=== PATIENT | female | born 1975 | race Caucasian/White ===

== ENCOUNTER 2018-11-20 19:24 | Emergency (ER) | payer OTHER, SELFPAY ==
[2018-11-20 21:10] LABS: Absolute Monocytes 0.4 K/uL (0.1-1.3); Absolute Neutrophil 4.2 K/uL (1.8-8.0); Basophils % 0.9 % (0-1.3); Eosinophils % 0.7 % (0-4.4); Hematocrit 43.8 % (36.0-45.0); Lymphocytes % 29.6 % (15.3-44.8); MPV 8.3 fL (7.6-11.3); RBC Red Blood Cell Count 4.87 M/uL (3.86-4.86)
[2018-11-20] MEDS ORDERED: MORPHINE 4 MG/ML SYR ONE (21:18)
[2018-11-20] MEDS ORDERED: ONDANSETRON 4 MG/2 ML VIAL ONE (21:18)
[2018-11-20] MEDS ORDERED: NA CHLORIDE 0.9% 1,000 ML ONE (21:19)
[2018-11-20 21:37] LABS: Albumin 3.6 g/dL (3.4-5.0); Bilirubin Direct 0.1 mg/dL (0-0.2); Bilirubin Total 0.4 mg/dL (0.2-1.0); Potassium 3.9 mmol/L (3.5-5.1); Protein, Total 7.3 g/dL (6.4-8.2)
[2018-11-20 22:09] LABS: Urine Blood TRACE (NEG); Urine Glucose NEGATIVE (NEG); Urine Protein TRACE (NEG); Urine Specific Gravity 1.025 (1.005-1.030); Urine pH 5.5 (5.0-7.0)
--- NOTE | 2018-11-20 23:34 | EDPHYS ---
Physician Documentation [facility] Name: Bobby Che Age: 43 yrs Sex: Female : 1975 Arrival Date: 11/20/2018 Time: 19:25 Bed 26 Private MD: ED Physician Darwin Gardner HPI: 11/20 23:12 This 43 yrs old Female presents to ER via Ambulatory with complaints of pm1 Abdominal Pain, Nausea. 23:12 The patient presents with abdominal pain in the left upper quadrant. Onset: The pm1 symptoms/episode began/occurred yesterday. The symptoms do not radiate. Associated signs and symptoms: Pertinent positives: nausea, Pertinent negatives: constipation, diarrhea, dysuria, fever, vomiting, vomiting blood. The symptoms are described as achy. Modifying factors: The symptoms are alleviated by nothing, the symptoms are aggravated by food. Severity of pain: in the emergency department the pain is actually worse. The patient has not experienced similar symptoms in the past. The patient has not recently seen a physician. 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 - Social history:: Smoking status: Patient/guardian denies using tobacco. - Ebola Screening: : No symptoms or risks identified at this time. ROS: 23:15 Constitutional: Negative for fever, chills, and weight loss, Eyes: Negative for injury, pm1 pain, redness, and discharge, ENT: Negative for injury, pain, and discharge, Neck: Negative for injury, pain, and swelling, Cardiovascular: Negative for chest pain, palpitations, and edema, Respiratory: Negative for shortness of breath, cough, wheezing, and pleuritic chest pain. 23:15 Back: Negative for injury and pain, : Negative for injury, bleeding, discharge, and swelling, MS/Extremity: Negative for injury and deformity, Skin: Negative for injury, rash, and discoloration, Neuro: Negative for headache, weakness, numbness, tingling, and seizure. 23:15 Abdomen/GI: Positive for abdominal pain, nausea, Negative for vomiting, diarrhea, constipation. Exam: 23:15 Constitutional: This is a well developed, well nourished patient who is awake, alert, pm1 and in no acute distress. Head/Face: Normocephalic, atraumatic. Eyes: Pupils equal round and reactive to light, extra-ocular motions intact. Lids and lashes normal. Conjunctiva and sclera are non-icteric and not injected. Cornea within normal limits. Periorbital areas with no swelling, redness, or edema. ENT: Nares patent. No nasal discharge, no septal abnormalities noted. Tympanic membranes are normal and external auditory canals are clear. Oropharynx with no redness, swelling, or masses, exudates, or evidence of obstruction, uvula midline. Mucous membranes moist. Neck: Trachea midline, no thyromegaly or masses palpated, and no cervical lymphadenopathy. Supple, full range of motion without nuchal rigidity, or vertebral point tenderness. No Meningismus. Chest/axilla: Normal chest wall appearance and motion. Nontender with no deformity. No lesions are appreciated. Cardiovascular: Regular rate and rhythm with a normal S1 and S2. No gallops, murmurs, or rubs. Normal PMI, no JVD. No pulse deficits. Respiratory: Lungs have equal breath sounds bilaterally, clear to auscultation and percussion. No rales, rhonchi or wheezes noted. No increased work of breathing, no retractions or nasal flaring. 23:15 Back: No spinal tenderness. No costovertebral tenderness. Full range of motion. Skin: Warm, dry with normal turgor. Normal color with no rashes, no lesions, and no evidence of cellulitis. MS/ Extremity: Pulses equal, no cyanosis. Neurovascular intact. Full, normal range of motion. 23:15 Abdomen/GI: Inspection: abdomen appears normal, Bowel sounds: normal, Palpation: soft, mild abdominal tenderness, in the left upper quadrant, mass, is not appreciated, rebound tenderness, is not appreciated. 23:15 Neuro: Orientation: is normal, Motor: is normal, moves all fours, strength is normal, strength is 5/5 in all extremities. Vital Signs: 19:41 BP 122 / 85; Pulse 69; Resp 18; Temp 98.7(O); Pulse Ox 99% on R/A; Weight 72.57 kg; lp1 Height 5 ft. 6 in. (167.64 cm); Pain 5/10; 20:45 BP 107 / 83; Pulse 62; Resp 17 S; Pulse Ox 98% on R/A; ca1 21:54 BP 100 / 70; Pulse 59; Resp 17 S; Pulse Ox 98% on R/A; ca1 22:30 BP 114 / 78; Pulse 57; Resp 18 S; Pulse Ox 99% on R/A; ca1 23:09 BP 109 / 79; Pulse 61; Resp 18 S; Pulse Ox 100% on R/A; ca1 19:41 Body Mass Index 25.82 (72.57 kg, 167.64 cm) lp1 MDM: 20:46 Patient medically screened. pm1 23:31 Data reviewed: vital signs. Data interpreted: Pulse oximetry: on room air is 100 %. pm1 Interpretation: normal. Counseling: I had a detailed discussion with the patient and/or guardian regarding: the historical points, exam findings, and any diagnostic results supporting the discharge/admit diagnosis, lab results, radiology results, the need for outpatient follow up, to return to the emergency department if symptoms worsen or persist or if there are any questions or concerns that arise at home. 11/20 20:47 Order name: Basic Metabolic Panel; Complete Time: 22:23 pm1 11/20 20:47 Order name: CBC with Diff; Complete Time: 22:23 pm11/20 20:47 Order name: Creatinine for Radiology; Complete Time: 22:23 pm11/20 20:47 Order name: Hepatic Function; Complete Time: 22:23 pm11/20 20:47 Order name: Lipase; Complete Time: 22:23 pm11/20 21:46 Order name: Urine Dipstick--Ancillary (enter results); Complete Time: 22:23 ms 11/20 20:47 Order name: IV Saline Lock; Complete Time: 21:34 pm1 11/20 20:47 Order name: Labs collected and sent; Complete Time: 21:34 pm11/20 20:52 Order name: CT Abd/Pelvis - W/Contrast: IV contrast only pm11/20 21:46 Order name: Urine --Ancillary (enter results); Complete Time: 22:23 ms 11/20 20:47 Order name: Urine Dipstick-Ancillary (obtain specimen); Complete Time: 21:55 pm1 11/20 20:47 Order name: Urine Test (obtain specimen); Complete Time: 21:55 pm1 Administered Medications: 21:15 Drug: NS 0.9% 1000 ml Route: IV; Rate: 1000 ml; Site: right forearm; rv 23:31 Follow up: IV Status: Completed infusion ca1 21:15 Drug: morphine 4 mg Route: IVP; Site: right forearm; rv 23:32 Follow up: Response: No adverse reaction; Pain is decreased ca1 21:15 Drug: Zofran 4 mg Route: IVP; Site: right forearm; rv 23:32 Follow up: Response: No adverse reaction; Nausea is decreased ca1 23:38 Drug: Bentyl 10 mg Route: PO; ca1 23:38 Follow up: Response: Medication administered at discharge. ca1 Disposition: 11/21 03:06 Co-signature as Attending Physician, Darwin Gardner MD. [email or web address] Disposition: 11/20/18 23:33 Discharged to Home. Impression: Constipation, Unspecified ovarian cysts. - Condition is Stable. - Discharge Instructions: Constipation, Adult, Ovarian Cyst, [id number]. - Prescriptions for Bentyl 20 mg Oral Tablet - take 1 tablet by ORAL route every 6 hours As needed; 20 tablet. Zofran 4 mg Oral Tablet - take 1 tablet by ORAL route every 12 hours As needed; 20 tablet. Miralax 17 gram/dose Oral - take 1 packet by ORAL route once daily As needed dilute powder in 8 ounces of water or juice; 7 packet. - Medication Reconciliation Form, Thank You Letter, Antibiotic Education, Prescription Opioid Use, Work release form form. - Follow up: Emergency Department; When: As needed; Reason: Worsening of condition. Follow up: Private Physician; When: 2 - 3 days; Reason: Recheck today's complaints, Continuance of care, Re-evaluation by your physician. - Problem is new. - Symptoms have improved. Signatures: Dispatcher [employer] EDMS Darwin Gardner MD MD pkl Gavi Magallanes RN RN lp1 Ariel Jones, KNIFE CHANGER KNIFE CHANGER pm1 Ronal Diamond RN RN rv Jazzy Blackman RN RN ca1 Corrections: (The following items were deleted from the chart) 11/20 23:39 23:33 11/20/2018 23:33 Discharged to Home. Impression: Constipation; Unspecified ca1 ovarian cysts. Condition is Stable. Forms are Work release form, Medication Reconciliation Form, Thank You Letter, Antibiotic Education, Prescription Opioid Use. Follow up: Emergency Department; When: As needed; Reason: Worsening of condition. Follow up: Private Physician; When: 2 - 3 days; Reason: Recheck today's complaints, Continuance of care, Re-evaluation by your physician. Problem is new. Symptoms have improved. pm1
--- NOTE | 2018-11-20 23:34 | ER ---
Nurse's Notes [facility] Name: Bobby Che Age: 43 yrs Sex: Female : 1975 Arrival Date: 11/20/2018 Time: 19:25 Bed 26 Private MD: Diagnosis: Constipation;Unspecified ovarian cysts Presentation: 11/20 19:39 Presenting complaint: Patient states: L side abdominal pain that began yesterday, not lp1 improving; States nausea, pain when attempting to eat; Denies diarrhea, fever, burning with urination. Transition of care: patient was not received from another setting of care. Onset of symptoms was November 19, 2018. Risk Assessment: Do you want to hurt yourself or someone else? Patient reports no desire to harm self or others. Initial Sepsis Screen: Does the patient meet any 2 criteria? No. Patient's initial sepsis screen is negative. Does the patient have a suspected source of infection? No. Patient's initial sepsis screen is negative. Care prior to arrival: None. 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 - Social history:: Smoking status: Patient/guardian denies using tobacco. - Ebola Screening: : No symptoms or risks identified at this time. Screenin:41 Abuse screen: Denies threats or abuse. Denies injuries from another. Nutritional lp1 screening: No deficits noted. Tuberculosis screening: No symptoms or risk factors identified. Fall Risk None identified. Assessment: 20:40 General: Appears in no apparent distress. comfortable, Behavior is calm, cooperative, ca1 appropriate for age. Pain: Complains of pain in abdomen Pain does not radiate. Pain currently is 8 out of 10 on a pain scale. Neuro: Level of Consciousness is awake, alert, obeys commands, Oriented to person, place, time, situation. Cardiovascular: Heart tones S1 S2 present Capillary refill < 3 seconds Patient's skin is warm and dry. Respiratory: Airway is patent Respiratory effort is even, unlabored, Respiratory pattern is regular, symmetrical, Breath sounds are clear bilaterally. GI: Abdomen is round non-distended, Bowel sounds present X 4 quads. Abd is soft X 4 quads Abdomen is tender to palpation in right lower quadrant and left lower quadrant Reports nausea. : No deficits noted. No signs and/or symptoms were reported regarding the genitourinary system. EENT: No deficits noted. No signs and/or symptoms were reported regarding the EENT system. Derm: Skin is intact, is healthy with good turgor, Skin is pink, warm \T\ dry. Musculoskeletal: Circulation, motion, and sensation intact. Capillary refill < 3 seconds. 21:35 Reassessment: Patient appears in no apparent distress at this time. Patient and/or ca1 family updated on plan of care and expected duration. Pain level reassessed. Patient is alert, oriented x 3, equal unlabored respirations, skin warm/dry/pink. 22:40 Reassessment: Patient appears in no apparent distress at this time. Patient is alert, ca1 oriented x 3, equal unlabored respirations, skin warm/dry/pink. 23:20 Reassessment: Patient appears in no apparent distress at this time. Patient and/or ca1 family updated on plan of care and expected duration. Pain level reassessed. Patient is alert, oriented x 3, equal unlabored respirations, skin warm/dry/pink. Vital Signs: 19:41 BP 122 / 85; Pulse 69; Resp 18; Temp 98.7(O); Pulse Ox 99% on R/A; Weight 72.57 kg; lp1 Height 5 ft. 6 in. (167.64 cm); Pain 5/10; 20:45 BP 107 / 83; Pulse 62; Resp 17 S; Pulse Ox 98% on R/A; ca1 21:54 BP 100 / 70; Pulse 59; Resp 17 S; Pulse Ox 98% on R/A; ca1 22:30 BP 114 / 78; Pulse 57; Resp 18 S; Pulse Ox 99% on R/A; ca1 23:09 BP 109 / 79; Pulse 61; Resp 18 S; Pulse Ox 100% on R/A; ca1 19:41 Body Mass Index 25.82 (72.57 kg, 167.64 cm) lp1 ED Course: 19:25 Patient arrived in ED. ds1 19:40 Triage completed. lp1 19:41 Arm band placed on right wrist. lp1 20:36 Jazzy Blackman, MONY is Primary Nurse. ca1 20:37 Ariel Jones NP is PHCP. pm1 20:37 Darwin Gardner MD is Attending Physician. pm1 20:40 Patient has correct armband on for positive identification. Placed in gown. Bed in low ca1 position. Call light in reach. Side rails up X 1. Pulse ox on. NIBP on. Warm blanket given. 20:58 Radiology exam delayed due to lab results not completed at this time. (BUN/Creatinine). 2 21:08 Radiology exam delayed due to lab results not completed at this time. (BUN/Creatinine). nj 21:23 Radiology exam delayed due to lab results not completed at this time. (BUN/Creatinine). nj 21:[address] via wheelchair. nj 21:58 CT Abd/Pelvis - W/Contrast: IV contrast only In Process Unspecified. EDMS 23:38 No provider procedures requiring assistance completed. IV discontinued, intact, ca1 bleeding controlled, No redness/swelling at site. Pressure dressing applied. Administered Medications: 21:15 Drug: NS 0.9% 1000 ml Route: IV; Rate: 1000 ml; Site: right forearm; rv 23:31 Follow up: IV Status: Completed infusion ca1 21:15 Drug: morphine 4 mg Route: IVP; Site: right forearm; rv 23:32 Follow up: Response: No adverse reaction; Pain is decreased ca1 21:15 Drug: Zofran 4 mg Route: IVP; Site: right forearm; rv 23:32 Follow up: Response: No adverse reaction; Nausea is decreased ca1 23:38 Drug: Bentyl 10 mg Route: PO; ca1 23:38 Follow up: Response: Medication administered at discharge. ca1 Outcome: 23:33 Discharge ordered by . pm1 23:38 Discharged to home ambulatory, with significant other. ca1 23:38 Condition: stable 23:38 Discharge instructions given to patient, Instructed on discharge instructions, follow up and referral plans. medication usage, Demonstrated understanding of instructions, follow-up care, medications, Prescriptions given X 3. 23:39 Patient left the ED. ca1 Signatures: Dispatcher [employer] [facility] Adela Wharton ds1 Gavi Magallanes RN RN lp1 Ariel Jones, WELDER PLASTIC WELDER PLASTIC pm1 Gerard Childress Victoria 2 Ronal Diamond RN RN rv Jazzy Blackman RN RN ca1 Corrections: (The following items were deleted from the chart) 21:51 20:40 GI: Abdomen is round non-distended, Bowel sounds present X 4 quads. Abd is soft X ca1 4 quads Abdomen is tender to palpation in right lower quadrant and left lower quadrant ca1
[2018-11-20 23:45] VITALS: TEMP 98.7
[2018-11-20] MEDS ORDERED: DICYCLOMINE HCL 10 MG CAP ONE (23:47)
[2018-11-20 23:51] VITALS: BP 109/79; O2SAT 100
--- NOTE | 2018-11-21 11:29 | RAD REPORT ---
EXAM DESCRIPTION: CT - Abdomen Pelvis W Contrast - 11/20/2018 11:03 pm CLINICAL HISTORY: 43 years Female, ABD PAIN COMPARISON: None. TECHNIQUE: 5 mm arterial phase axial images of the abdomen were obtained. 5 mm venous phase axial images of the abdomen and pelvis were obtained along with 3 mm coronal and sa gittal reformatted images.. This exam was performed according to our departmental dose-optimization program, which includes autom ated exposure control, adjustment of the mA and/or kV according to patient size and/or use of iterati ve reconstruction technique. INTRAVENOUS CONTRAST: Not documented. Please refer to medical record. FINDINGS: Lung bases: Normal. Liver: Normal. Spleen: Normal. Pancreas: Normal. Gallbladder: Normal. Right adrenal gland: Normal. Left adrenal gland: Normal. Right kidney: Normal. Left kidney: Normal. Retroperitoneal structures: Normal. Bowel survey: There is increased stool within the ascending, transverse, descending colon. The distal ileum is unremarkable. The appendix is unremarkable. Urinary bladder: Normal. Uterus and adnexa: There is evidence of previous bilateral tubal ligation. There is a crenulated right ovarian cyst with a small amount of adjacent free fluid suggesting a cyst rupture.. The cyst measures 2.1 x 1.5 cm. Peritoneal cavity: Small amount of free fluid in the posterior pelvic cul-de-sac.. Mesentery structures: There is mild mesenteric panniculitis. Abdominal wall: No hernia. Bony structures: No suspicious lesions. IMPRESSION: 1. There is increased stool within the ascending, transverse, descending colon. 2. Ruptured right ovarian cyst. Electronically signed by: Nicolás Heredia MD 11/20/2018 10:10 PM CDT Due to temporary technical issues with the PACS/Fluency reporting system, reports are being signed by the in house radiologist as a courtesy to ensure prompt reporting. The interpreting radiologist is f ully responsible for the content of the report.
== END 2018-11-20 23:39 | disposition home or self-care (01) ==
LOC: ER 19:24
DX: K59.00 Constipation, unspecified (principal); N83.201 Unspecified ovarian cyst, right side; F41.9 Anxiety disorder, unspecified; F32.9 Major depressive disorder, single episode, unspecified; Z79.899 Other long term (current) drug therapy
CPT/HCPCS: 36415; 74177; 80048; 80076; 81003; 81025; 83690; 85025; 96361; 96374; 96375; 99284; J2405; J7030; Q9967

== ENCOUNTER 2018-12-22 06:33 | Emergency (ER) | payer SELFPAY ==
--- NOTE | 2018-12-22 07:24 | ER ---
Nurse's Notes [facility] Name: Bobby Che Age: 43 yrs Sex: Female : 1975 Arrival Date: 12/22/2018 Time: 06:34 Bed 19 Private MD: Diagnosis: Cutaneous abscess of head [any part, except face];Acute contact otitis externa, right ear Presentation: 12/22 07:03 Presenting complaint: Patient states: R ear pain for the past week, with a head cold. ch Transition of care: patient was not received from another setting of care. Onset of symptoms was December 15, 2018. Risk Assessment: Do you want to hurt yourself or someone else? Patient reports no desire to harm self or others. Initial Sepsis Screen: Does the patient meet any 2 criteria? No. Patient's initial sepsis screen is negative. Does the patient have a suspected source of infection? No. Patient's initial sepsis screen is negative. Care prior to arrival: None. 07:03 Method Of Arrival: Ambulatory 07:03 Acuity: HUMAIRA 4 ch Triage Assessment: 07:05 General: Appears in no apparent distress. uncomfortable, Behavior is calm, cooperative, ch appropriate for age. Pain: Complains of pain in right ear. EENT: Ear canal w/ drainage noted from right ear. Historical: - Allergies: 07:05 No Known Allergies; ch - PMHx: 07:05 Anxiety; Asthma; Depression; Endometrosis; Ovarian cysts; ch - PSHx: 07:05 Tubal ligation; ch - Immunization history:: Adult Immunizations up to date, Flu vaccine is not up to date. - Social history:: Smoking status: Patient/guardian denies using tobacco, Patient/guardian denies using alcohol, street drugs. - Ebola Screening: : Patient negative for fever greater than or equal to 101.5 degrees Fahrenheit, and additional compatible Ebola Virus Disease symptoms Patient denies exposure to infectious person Patient denies travel to an Ebola-affected area in the 21 days before illness onset No symptoms or risks identified at this time. Screenin:15 Abuse screen: Denies threats or abuse. Nutritional screening: No deficits noted. aa5 Tuberculosis screening: No symptoms or risk factors identified. Fall Risk None identified. Assessment: 07:15 General: Appears uncomfortable, Behavior is calm, cooperative. Pain: Complains of pain aa5 in right ear. Neuro: Level of Consciousness is awake, alert, obeys commands, Oriented to person, place, time, situation. Cardiovascular: Heart tones S1 S2 present Rhythm is regular. Respiratory: Airway is patent Respiratory effort is even, unlabored, Respiratory pattern is regular, symmetrical. GI: No signs and/or symptoms were reported involving the gastrointestinal system. : No signs and/or symptoms were reported regarding the genitourinary system. EENT: redness and swelling noted to right external ear. . Derm: Skin is pink, warm \T\ dry. Musculoskeletal: Range of motion: intact in all extremities. 07:17 Reassessment: Small abscess to right external ear lanced by KALEB, small amount of aa5 purulent drainage was noted. . Vital Signs: 07:05 BP 137 / 96; Pulse 90; Resp 14; Pulse Ox 99% on R/A; Pain 8/10; ch ED Course: 06:34 Patient arrived in ED. am2 06:55 Dorys Negron RN is Primary Nurse. 06:57 Waqas Stringer PA is PHCP. jr8 06:57 Arian Rouse MD is Attending Physician. jr8 07:04 Triage completed. 07:05 Arm band placed on left wrist. Patient placed in an exam room, on a stretcher, on pulse ch oximetry. 07:15 Patient has correct armband on for positive identification. Bed in low position. Call aa5 light in reach. Side rails up X 1. 07:30 Patient did not have IV access during this emergency room visit. aa5 07:30 No provider procedures requiring assistance completed. aa5 Administered Medications: No medications were administered Outcome: 07:23 Discharge ordered by . jr8 07:32 Discharged to home ambulatory. aa5 07:32 Condition: stable 07:32 Discharge instructions given to patient, Instructed on discharge instructions, follow up and referral plans. medication usage, Demonstrated understanding of instructions, follow-up care, medications, Prescriptions given X 2. 07:33 Patient left the ED. jr8 Signatures: Dorys Negron, RN RN Yuli Saavedra RN RN [facility] Waqas Stringer PA PA jr8 Trisha Flores am2
--- NOTE | 2018-12-22 07:24 | EDPHYS ---
Physician Documentation [facility] Name: Bobby Che Age: 43 yrs Sex: Female : 1975 Arrival Date: 12/22/2018 Time: 06:34 Bed 19 Private MD: ED Physician Arian Rouse HPI: 12/22 07:30 This 43 yrs old Female presents to ER via Ambulatory with complaints of Ear jr8 Pain. 07:30 The patient presents with pain. The complaints affect the right ear. Onset: The jr8 symptoms/episode began/occurred acutely, yesterday. Modifying factors: The symptoms are alleviated by nothing, the symptoms are aggravated by touching. Associated signs and symptoms: Pertinent positives: cough, rhinorrhea, sinus trouble. Severity of symptoms: At their worst the symptoms were mild in the emergency department the symptoms are unchanged. The patient has not experienced similar symptoms in the past. The patient has not recently seen a physician. Historical: - Allergies: 07:05 No Known Allergies; ch - PMHx: 07:05 Anxiety; Asthma; Depression; Endometrosis; Ovarian cysts; ch - PSHx: 07:05 Tubal ligation; ch - Immunization history:: Adult Immunizations up to date, Flu vaccine is not up to date. - Social history:: Smoking status: Patient/guardian denies using tobacco, Patient/guardian denies using alcohol, street drugs. - Ebola Screening: : Patient negative for fever greater than or equal to 101.5 degrees Fahrenheit, and additional compatible Ebola Virus Disease symptoms Patient denies exposure to infectious person Patient denies travel to an Ebola-affected area in the 21 days before illness onset No symptoms or risks identified at this time. ROS: 07:30 Eyes: Negative for injury, pain, redness, and discharge, Neck: Negative for injury, jr8 pain, and swelling, Cardiovascular: Negative for chest pain, palpitations, and edema, Abdomen/GI: Negative for abdominal pain, nausea, vomiting, diarrhea, and constipation, Back: Negative for injury and pain, MS/Extremity: Negative for injury and deformity, Skin: Negative for injury, rash, and discoloration, Neuro: Negative for headache, weakness, numbness, tingling, and seizure. 07:30 Constitutional: Negative for body aches, chills, fever. 07:30 ENT: Positive for ear pain, rhinorrhea, sinus congestion, Negative for drainage from ear(s), Gum pain tinnitus, sinus pain, sore throat, difficulty swallowing, difficulty handling secretions. 07:30 Respiratory: Positive for cough, Negative for dyspnea on exertion, shortness of breath, sputum production, wheezing. Exam: 07:30 Head/Face: Normocephalic, atraumatic. Eyes: Pupils equal round and reactive to light, jr8 extra-ocular motions intact. Lids and lashes normal. Conjunctiva and sclera are non-icteric and not injected. Cornea within normal limits. Periorbital areas with no swelling, redness, or edema. Neck: Trachea midline, no thyromegaly or masses palpated, and no cervical lymphadenopathy. Supple, full range of motion without nuchal rigidity, or vertebral point tenderness. No Meningismus. Cardiovascular: Regular rate and rhythm with a normal S1 and S2. No gallops, murmurs, or rubs. Normal PMI, no JVD. No pulse deficits. Respiratory: Lungs have equal breath sounds bilaterally, clear to auscultation and percussion. No rales, rhonchi or wheezes noted. No increased work of breathing, no retractions or nasal flaring. Abdomen/GI: Soft, non-tender, with normal bowel sounds. No distension or tympany. No guarding or rebound. No evidence of tenderness throughout. Back: No spinal tenderness. No costovertebral tenderness. Full range of motion. Skin: Warm, dry with normal turgor. Normal color with no rashes, no lesions, and no evidence of cellulitis. MS/ Extremity: Pulses equal, no cyanosis. Neurovascular intact. Full, normal range of motion. Neuro: Awake and alert, GCS 15, oriented to person, place, time, and situation. Cranial nerves II-XII grossly intact. Motor strength 5/5 in all extremities. Sensory grossly intact. Cerebellar exam normal. Normal gait. 07:30 ENT: Exam is negative for nasal discharge, sinus tenderness, enlarged tonsils, peritonsillar abscess pharyngitis, exudate, abnormal voice, External ear(s): abscess, that is very small, right ear canal, Ear canal(s): purulent discharge, that is moderate, in the right canal, swelling, that is moderate, of the right canal, TM's: are normal, no evidence of bulging, no dullness, no erythema, no fluid levels, no hemotympanum, no rupture, normal bony landmarks, normal mobility. Vital Signs: 07:05 BP 137 / 96; Pulse 90; Resp 14; Pulse Ox 99% on R/A; Pain 8/10; ch MDM: 06:57 Patient medically screened. jr8 07:23 Data reviewed: vital signs, nurses notes, and as a result, I will discharge patient. jr8 Data interpreted: Pulse oximetry: on room air is 99 %. Interpretation: normal. Counseling: I had a detailed discussion with the patient and/or guardian regarding: the historical points, exam findings, and any diagnostic results supporting the discharge/admit diagnosis, the need for outpatient follow up, a family practitioner, to return to the emergency department if symptoms worsen or persist or if there are any questions or concerns that arise at home. Administered Medications: No medications were administered Disposition: 11:46 Co-signature as Attending Physician, Arian Rouse MD I agree with the assessment and [facility] plan of care. Disposition: 12/22/18 07:23 Discharged to Home. Impression: Cutaneous abscess of head [any part, except face], Acute contact otitis externa, right ear. - Condition is Stable. - Discharge Instructions: Skin Abscess, Otitis Externa, Incision and Drainage. - Prescriptions for Keflex 500 mg Oral Capsule - take 1 capsule by ORAL route every 8 hours for 7 days; 21 capsule. Ciprodex 0.3- 0.1 % Otic Drops, Suspension - instill 4 drop by OTIC route every 12 hours for 7 days , for ears ONLY; 1 Container. - Work release form, Medication Reconciliation Form, Thank You Letter, Antibiotic Education, Prescription Opioid Use form. - Follow up: Private Physician; When: 5 - 6 days; Reason: Recheck today's complaints, Continuance of care, Re-evaluation by your physician. - Problem is new. - Symptoms have improved. Signatures: Dorys Negron RN RN ch Anderson, Corey, MD MD cha Roszak, Josh, PA PA jr8 Corrections: (The following items were deleted from the chart) 07:33 07:23 12/22/2018 07:23 Discharged to Home. Impression: Cutaneous abscess of head [any jr8 part, except face]; Acute contact otitis externa, right ear. Condition is Stable. Forms are Medication Reconciliation Form, Thank You Letter, Antibiotic Education, Prescription Opioid Use. Follow up: Private Physician; When: 5 - 6 days; Reason: Recheck today's complaints, Continuance of care, Re-evaluation by your physician. Problem is new. Symptoms have improved. jr8
[2018-12-22 07:40] VITALS: BP 137/96; O2SAT 99
== END 2018-12-22 07:33 | disposition home or self-care (01) ==
LOC: ER 06:33
DX: H60.531 Acute contact otitis externa, right ear (principal); L02.811 Cutaneous abscess of head [any part, except face]
CPT/HCPCS: 99283

== ENCOUNTER 2021-01-02 07:55 | Emergency (ER) | payer SELFPAY ==
[2021-01-02 08:50] LABS: Absolute Lymphocytes (CBC) 1.4 K/uL (0.7-4.9); Basophils % 0.9 % (0-1.3); Hematocrit 38.2 % (36.0-45.0); Lymphocytes % 32.1 % (15.3-44.8); MPV 8.6 fL (7.6-11.3); RBC Red Blood Cell Count 4.41 M/uL (3.86-4.86)
[2021-01-02 08:54] LABS: Protime INR 0.98
--- NOTE | 2021-01-02 08:57 | RAD REPORT ---
EXAM DESCRIPTION: RAD - Chest Single View - 01/02/2021 8:31 am CLINICAL HISTORY: CHEST PAIN Chest pain. COMPARISON: CHEST PA AND LAT 2 VIEW dated 04/28/2015; CHEST SINGLE VIEW dated 03/08/2015; CHEST PA AND LAT 2 VIEW dated 12/23/2014; CHEST SINGLE VIEW dated 08/24/2014 FINDINGS: Portable technique limits examination quality. The lungs are grossly clear. The heart is normal in size. No displaced fractures. IMPRESSION: No acute intrathoracic process suspected.
[2021-01-02 09:13] LABS: ALT/SGPT 27 U/L (12-78); AST/SGOT 13 U/L (15-37); Albumin 3.6 g/dL (3.4-5.0); Alkaline Phosphatase 82 U/L (45-117); BUN Blood Urea Nitrogen 13 mg/dL (7-18); Bicarbonate 26 mmol/L (21-32); Bilirubin Direct < 0.1 mg/dL (0-0.2); Bilirubin Total 0.2 mg/dL (0.2-1.0); Glucose Level 117 mg/dL (74-106); Magnesium 2.2 mg/dL (1.8-2.4); NT PRO-BNP 33 pg/mL (<125); Protein, Total 6.9 g/dL (6.4-8.2); Sodium Level 139 mmol/L (136-145); Troponin (Emerg Dept Use Only) < 0.02 ng/mL (0.0-0.045)
--- NOTE | 2021-01-02 10:44 | EDPHYS ---
Physician Documentation [facility] Name: Bobby Che Age: 45 yrs Sex: Female : 1975 Arrival Date: 01/02/2021 Time: 07:56 Bed 13 Private MD: ED Physician Virgilio Garcia HPI: 01/02 08:45 This 45 yrs old Female presents to ER via Ambulatory with complaints of Chest kdr Pain. 08:45 The patient or guardian reports chest pain that is located primarily in the anterior kdr chest wall, left. Onset: gradually, 4 day(s) ago. The pain does not radiate. Associated signs and symptoms: The patient has no apparent associated signs or symptoms. The chest pain is described as aching, burning, dull, a pressure. Duration: The patient or guardian reports multiple episodes, that are intermittent, that wax and wane, with no pattern. Modifying factors: The symptoms are alleviated by nothing. the symptoms are aggravated by nothing. Severity of pain: At its worst the pain was. Historical: - Allergies: 08:03 No Known Drug Allergies; ll1 - PMHx: 08:03 Anxiety; Asthma; Depression; Endometrosis; Ovarian cysts; ll1 - PSHx: 08:03 Tubal ligation; ll1 - Immunization history:: Flu vaccine is not up to date. - Social history:: Smoking status: Patient denies any tobacco usage or history of. ROS: 12:53 Constitutional: Negative for fever, chills, and weight loss, Eyes: Negative for injury, kdr pain, redness, and discharge, ENT: Negative for injury, pain, and discharge, Neck: Negative for injury, pain, and swelling, Respiratory: Negative for shortness of breath, cough, wheezing, and pleuritic chest pain, Abdomen/GI: Negative for abdominal pain, nausea, vomiting, diarrhea, and constipation, Back: Negative for injury and pain, : Negative for injury, bleeding, discharge, and swelling, MS/Extremity: Negative for injury and deformity, Skin: Negative for injury, rash, and discoloration, Neuro: Negative for headache, weakness, numbness, tingling, and seizure activity. Psych: Negative for depression, anxiety, suicide ideation, homicidal ideation, and hallucinations, Allergy/Immunology: Negative for hives, rash, and allergies, Endocrine: Negative for neck swelling, polydipsia, polyuria, polyphagia, and marked weight changes, Hematologic/Lymphatic: Negative for swollen nodes, abnormal bleeding, and unusual bruising. 12:53 Cardiovascular: Positive for chest pain, Negative for edema, orthopnea, palpitations, paroxysmal nocturnal dyspnea. Exam: 12:53 ECG was reviewed by the Attending Physician. kdr 12:53 Constitutional: This is a well developed, well nourished patient who is awake, alert, kdr and in no acute distress. Head/Face: Normocephalic, atraumatic. Eyes: Pupils equal round and reactive to light, extra-ocular motions intact. Lids and lashes normal. Conjunctiva and sclera are non-icteric and not injected. Cornea within normal limits. Periorbital areas with no swelling, redness, or edema. Neck: Trachea midline, no thyromegaly or masses palpated, and no cervical lymphadenopathy. Supple, full range of motion without nuchal rigidity, or vertebral point tenderness. No Meningismus. Chest/axilla: Normal chest wall appearance and motion. Nontender with no deformity. No lesions are appreciated. Cardiovascular: Regular rate and rhythm with a normal S1 and S2. No gallops, murmurs, or rubs. Normal PMI, no JVD. No pulse deficits. Respiratory: Lungs have equal breath sounds bilaterally, clear to auscultation and percussion. No rales, rhonchi or wheezes noted. No increased work of breathing, no retractions or nasal flaring. Abdomen/GI: Soft, non-tender, with normal bowel sounds. No distension or tympany. No guarding or rebound. No evidence of tenderness throughout. Back: No spinal tenderness. No costovertebral tenderness. Full range of motion. Skin: Warm, dry with normal turgor. Normal color with no rashes, no lesions, and no evidence of cellulitis. MS/ Extremity: Pulses equal, no cyanosis. Neurovascular intact. Full, normal range of motion. Neuro: Awake and alert, GCS 15, oriented to person, place, time, and situation. Cranial nerves II-XII grossly intact. Motor strength 5/5 in all extremities. Sensory grossly intact. Cerebellar exam normal. Normal gait. Psych: Awake, alert, with orientation to person, place and time. Behavior, mood, and affect are within normal limits. Vital Signs: 08:03 BP 123 / 81; Pulse 77; Resp 16; Temp 97.3; Pulse Ox 100% ; Weight 72.57 kg; Height 5 ll1 ft. 6 in. (167.64 cm); Pain 5/10; 08:45 BP 115 / 88; Pulse 76; Resp 15; Pulse Ox 100% on R/A; Pain 4/10; hb 09:22 BP 117 / 86; Pulse 65; Resp 14; Pulse Ox 100% on R/A; hb 10:38 BP 130 / 83; Pulse 63; Resp 14; Pulse Ox 100% on R/A; hb 08:03 Body Mass Index 25.82 (72.57 kg, 167.64 cm) ll1 MDM: 10:43 Patient medically screened. kdr 12:53 Data reviewed: vital signs, nurses notes, lab test result(s). [facility] 01/02 08:20 Order name: Basic Metabolic Panel [facility] 01/02 08:20 Order name: CBC with Diff; Complete Time: 10:34 kdr 01/02 08:20 Order name: LFT's [facility] 01/02 08:20 Order name: Magnesium kdr 01/02 08:20 Order name: NT PRO-BNP; Complete Time: 10:34 kdr 01/02 08:20 Order name: PT-INR; Complete Time: 10:34 [facility] 01/02 08:20 Order name: Troponin (emerg Dept Use Only); Complete Time: 10:34 kdr 01/02 08:20 Order name: XRAY Chest (1 view); Complete Time: 10:34 kdr 01/02 08:20 Order name: EKG; Complete Time: 08:21 kdr 01/02 08:20 Order name: Cardiac monitoring; Complete Time: 08:23 kdr 01/02 08:20 Order name: EKG - Nurse/Tech; Complete Time: 08:23 kdr 01/02 08:20 Order name: Basic Metabolic Panel; Complete Time: 10:34 EDMS 01/02 08:21 Order name: Liver (Hepatic) Function; Complete Time: 10:34 EDMS 01/02 08:21 Order name: Magnesium; Complete Time: 10:34 EDMS 01/02 08:20 Order name: IV Saline Lock; Complete Time: 08:54 kdr 01/02 08:20 Order name: Labs collected and sent; Complete Time: 08:54 kdr 01/02 08:20 Order name: O2 Per Protocol; Complete Time: 08:23 kdr 01/02 08:20 Order name: O2 Sat Monitoring; Complete Time: : kdr EC:53 Rate is 68 beats/min. Rhythm is regular, Normal Sinus Rhythm with No ectopy. QRS [place] kdr is Normal. ME interval is normal. QRS interval is normal. QT interval is normal. Clinical impression: Normal ECG. Administered Medications: No medications were administered Disposition: 01/02/21 10:43 Discharged to Home. Impression: Chest pain, unspecified. - Condition is Stable. - Discharge Instructions: Nonspecific Chest Pain, [id number]. - Prescriptions for Ibuprofen 600 mg Oral Tablet - take 1 tablet by ORAL route every 6 hours As needed take with food; 30 tablet. Pepcid 20 mg Oral Tablet - take 1 tablet by ORAL route every 12 hours for 10 days; 20 tablet. - Medication Reconciliation Form, Thank You Letter, Work release form, Family Work Release form. - Follow up: Private Physician; When: 2 - 3 days; Reason: If symptoms return, Further diagnostic work-up, Recheck today's complaints, Continuance of care, Re-evaluation by your physician. - Problem is an ongoing problem. - Symptoms have improved. Signatures: Dispatcher [employer] EDMS Virgilio Garcia MD MD kdr Ania Gibson RN RN Gerda Akins RN RN ll1 Corrections: (The following items were deleted from the chart) 11:25 10:43 01/02/2021 10:43 Discharged to Home. Impression: Chest pain, unspecified. hb Condition is Stable. Forms are Medication Reconciliation Form, Thank You Letter, Antibiotic Education, Prescription Opioid Use. Follow up: Private Physician; When: 2 - 3 days; Reason: If symptoms return, Further diagnostic work-up, Recheck today's complaints, Continuance of care, Re-evaluation by your physician. Problem is an ongoing problem. Symptoms have improved. kdr
--- NOTE | 2021-01-02 10:44 | ER ---
Nurse's Notes [facility] Name: Bobby Che Age: 45 yrs Sex: Female : 1975 Arrival Date: 01/02/2021 Time: 07:56 Bed 13 Private MD: Diagnosis: Chest pain, unspecified Presentation: 01/02 08:03 Chief complaint: Patient states: L sided CP for 4 days. + cough and SOB. No fever. ll1 Coronavirus screen: Client denies travel out of the [place] in the last 14 days. cough unrelated to allergies, difficulty breathing, shortness of breath, Client presents with at least one sign or symptom that may indicate coronavirus-19. Standard/surgical mask placed on the client. Ebola Screen: Patient denies travel to an Ebola-affected area in the 21 days before illness onset. Initial Sepsis Screen: Does the patient meet any 2 criteria? No. Patient's initial sepsis screen is negative. Does the patient have a suspected source of infection? No. Patient's initial sepsis screen is negative. Risk Assessment: Do you want to hurt yourself or someone else? Patient reports no desire to harm self or others. Onset of symptoms was December 30, 2020. 08:03 Method Of Arrival: Ambulatory ll1 08:03 Acuity: HUMAIRA 3 ll1 Historical: - Allergies: 08:03 No Known Drug Allergies; ll1 - PMHx: 08:03 Anxiety; Asthma; Depression; Endometrosis; Ovarian cysts; ll1 - PSHx: 08:03 Tubal ligation; ll1 - Immunization history:: Flu vaccine is not up to date. - Social history:: Smoking status: Patient denies any tobacco usage or history of. Screenin:45 Abuse screen: Denies threats or abuse. Denies injuries from another. Nutritional hb screening: No deficits noted. Tuberculosis screening: No symptoms or risk factors identified. Fall Risk None identified. Assessment: 08:45 General: Appears in no apparent distress. Behavior is calm, cooperative. Pain: Pain hb currently is 4 out of 10 on a pain scale. Neuro: Level of Consciousness is awake, alert, obeys commands, Oriented to person, place, time, situation. Cardiovascular: Reports since left sided chest pain Patient's skin is warm and dry. Respiratory: Respiratory effort is even, unlabored, Respiratory pattern is regular, symmetrical. GI: No signs and/or symptoms were reported involving the gastrointestinal system. : No signs and/or symptoms were reported regarding the genitourinary system. EENT: No signs and/or symptoms were reported regarding the EENT system. Derm: Skin is pink, warm \T\ dry. Musculoskeletal: No signs and/or symptoms reported regarding the musculoskeletal system. 09:23 Reassessment: Patient appears in no apparent distress at this time. Patient and/or hb family updated on plan of care and expected duration. Pain level reassessed. Patient is alert, oriented x 3, equal unlabored respirations, skin warm/dry/pink. 10:30 Reassessment: Patient appears in no apparent distress at this time. Patient and/or hb family updated on plan of care and expected duration. Pain level reassessed. Patient is alert, oriented x 3, equal unlabored respirations, skin warm/dry/pink. Vital Signs: 08:03 BP 123 / 81; Pulse 77; Resp 16; Temp 97.3; Pulse Ox 100% ; Weight 72.57 kg; Height 5 ll1 ft. 6 in. (167.64 cm); Pain 5/10; 08:45 BP 115 / 88; Pulse 76; Resp 15; Pulse Ox 100% on R/A; Pain 4/10; hb 09:22 BP 117 / 86; Pulse 65; Resp 14; Pulse Ox 100% on R/A; hb 10:38 BP 130 / 83; Pulse 63; Resp 14; Pulse Ox 100% on R/A; hb 08:03 Body Mass Index 25.82 (72.57 kg, 167.64 cm) ll1 ED Course: 07:56 Patient arrived in ED. as 08:02 Arm band placed on Patient placed in an exam room, on a stretcher. ll1 08:05 Triage completed. ll1 08:12 Ania Gibson, MONY is Primary Nurse. hb 08:19 Virgilio Garcia MD is Attending Physician. kdr 08:31 XRAY Chest (1 view) In Process Unspecified. EDMS 08:36 Inserted saline lock: 20 gauge in right antecubital area, using aseptic technique. hb Blood collected. 08:39 Patient maintains SpO2 saturation greater than 95% on room air. hb 08:55 LFT's Sent. hb 08:55 Basic Metabolic Panel Sent. hb 08:55 Magnesium Sent. hb 11:14 No provider procedures requiring assistance completed. IV discontinued, intact, hb bleeding controlled, No redness/swelling at site. Administered Medications: No medications were administered Outcome: 10:43 Discharge ordered by . kdr 11:14 Discharged to home ambulatory, with significant other. hb 11:14 Condition: stable 11:14 Discharge instructions given to patient, Instructed on discharge instructions, follow up and referral plans. medication usage, Demonstrated understanding of instructions, follow-up care, medications, Prescriptions given X 2. 11:25 Patient left the ED. hb Signatures: Dispatcher [employer] EDMS Virgilio Garcia MD MD kdr Sosa Welch as Ania Gibson, RN RN hb Gerda Akins RN RN ll1
[2021-01-02 11:35] VITALS: TEMP 97.3; O2SAT 100
[2021-01-02 11:40] VITALS: BP 130/83
--- NOTE | 2021-01-07 12:10 | EKG ---
Test Date: 2021-01-02 Test Time: 08:08:18 Blow Machine Tender Starch Spraying: HB MEASUREMENT RESULTS: Intervals: Rate: 68 [place]: 130 QRSD: 76 QT: 396 QTc: 421 [place]: P: 56 [place]: 130 QRS: 18 T: 28 INTERPRETIVE STATEMENTS: Normal sinus rhythm Normal ECG Compared to ECG 03/08/2015 17:53:05 No significant changes Electronically Signed On 01-07-21 11:55:45 CDT by Ryan Mujica
== END 2021-01-02 11:25 | disposition home or self-care (01) ==
LOC: ER 07:55
DX: R07.89 Other chest pain (principal)
CPT/HCPCS: 36415; 71045; 80048; 80076; 83735; 83880; 84484; 85025; 85610; 93005; 99284

== ENCOUNTER 2022-07-19 07:28 | Day surgery (SDC) | payer OTHER ==
--- NOTE | 2022-07-15 09:05 | RAD REPORT ---
EXAM DESCRIPTION: RAD - Chest Pa And Lat (2 Views) - 07/15/2022 8:54 am CLINICAL HISTORY: Pre op pending cholecystectomy COMPARISON: Portable chest 12/25/2020, lateral chest view 04/28/2015 TECHNIQUE: Frontal and lateral views of the chest were obtained. FINDINGS: The lungs are clear of mass or infiltrate. No failure or volume overload. Interstitial pa ttern matches comparison. Lung volumes are low which accentuates the interstitial pattern. Heart size is normal and central vasculature is within normal limits. No pleural effusion or pneumothorax seen . No acute bony finding noted. No aortic abnormality. IMPRESSION: No acute cardiopulmonary process. No significant change from comparison study.
[2022-07-15 09:18] LABS: Absolute Lymphocytes (CBC) 1.4 K/uL (0.7-4.9); Lymphocytes % 25.3 % (15.3-44.8); MCV 83.2 fL (80-100); MPV 7.6 fL (7.6-11.3); RBC Red Blood Cell Count 4.32 M/uL (3.86-4.86)
[2022-07-15 09:30] LABS: ALT/SGPT 23 U/L (12-78); AST/SGOT 14 U/L (15-37); Albumin 3.4 g/dL (3.4-5.0); Alkaline Phosphatase 80 U/L (45-117); Amylase 39 U/L (25-115); BUN Blood Urea Nitrogen 9 mg/dL (7-18); Bicarbonate 25 mmol/L (21-32); Bilirubin Total 0.3 mg/dL (0.2-1.0); Glomerular Filtration Rate 110 ml/min (=/>90); Glucose Level 96 mg/dL (74-106); Lipase 202 U/L (73-393); Potassium 3.9 mmol/L (3.5-5.1); Sodium Level 137 mmol/L (136-145)
[2022-07-15 09:31] LABS: Bilirubin Direct < 0.1 mg/dL (0-0.2)
--- NOTE | 2022-07-15 16:00 | EKG ---
Test Date: 2022-07-15 Test Time: 08:39:14 Turn Down Attendant: ANAIS MEASUREMENT RESULTS: Intervals: Rate: 67 [place]: 126 QRSD: 76 QT: 388 QTc: 409 [place]: P: 54 [place]: 126 QRS: 11 T: 41 INTERPRETIVE STATEMENTS: Normal sinus rhythm Nonspecific T wave abnormality Abnormal ECG Compared to ECG 01/02/2021 08:08:18 T-wave abnormality now present Electronically Signed On 07-15-22 15:59:40 REJECTED ITEMS CLERK by Werner Banegas
[2022-07-19] MEDS ORDERED: Ringers Lactate 1,000 ML IV ONE (07:50)
[2022-07-19] MEDS ORDERED: CEFOXITIN SODIUM 1 GM/VIAL ONE (07:50)
[2022-07-19] MEDS ORDERED: FENTANYL CITR 100 MCG/2 ML ONE (08:10)
[2022-07-19] MEDS ORDERED: propofoL 200 MG/20 ML VIAL IV ONE (08:10)
[2022-07-19] MEDS ORDERED: MIDAZOLAM HCL 2 MG/2 ML INJ ONE (08:11)
[2022-07-19] MEDS ORDERED: LIDOCAINE 2% MPF 5 ML VIAL ONE (08:11)
[2022-07-19] MEDS ORDERED: ONDANSETRON 4 MG/2 ML VIAL ONE (08:11)
[2022-07-19] MEDS ORDERED: dexAMETHasone 10 MG/ML VIAL ONE (08:11)
[2022-07-19] MEDS ORDERED: ROCURONIUM 50 MG/5 ML VIAL IV ONE (08:11)
[2022-07-19 08:50] LABS: Urine Specific Gravity/Preg >1.030 (1.005-1.030)
[2022-07-19] MEDS ORDERED: KETOROLAC 30 MG/ML INJ ONE (08:55)
[2022-07-19] MEDS ORDERED: Mastisol Adhesive Liq ONE (09:43)
--- NOTE | 2022-07-19 09:55 | P.BOP ---
Preoperative diagnosis: acute cholecystitis, symptomatic cholelithiasis Postoperative diagnosis: same Primary procedure: Laparoscopic cholecystectomy Estimated blood loss: <10cc Specimen: gb Findings: as above Anesthesia: General Complications: None Transferred to: Recovery Room Condition: Good
[2022-07-19 10:13] VITALS: O2SAT 100
[2022-07-19 10:44] VITALS: BP 133/84; TEMP 97
--- NOTE | 2022-07-19 18:07 | OP ---
Date of Procedure: 07/19/2022 Surgeon: Jose Welch MD Preoperative Diagnoses: Acute cholecystitis, symptomatic cholelithiasis. Postoperative Diagnoses: Acute cholecystitis, symptomatic cholelithiasis. Procedure: Laparoscopic cholecystectomy. Estimated Blood Loss: Less than 10 cc. Findings: As above. Anesthesia: General plus local. Indications: This is the case of a 47-year-old patient who comes to us with above diagnoses. Fully explained the benefits, alternatives, and risks of laparoscopic possible open cholecystectomy which i nclude, but not limited to infection, bleeding, damage to adjacent structures, anesthesia complicatio n, choledocholithiasis, bile leak, pancreatitis, [place], and even . She also understands this may n ot relieve any symptoms and she might need more than one surgical intervention. She understood, sign ed a consent. Procedure In Detail: The patient was brought to the operating room, placed in supine position. Anes thesia was done without complication. Abdominal area was prepped and draped in the usual sterile fas hion. Marcaine 0.5% was injected for local anesthetic followed by sharp incision of the skin in the infraumbilical region. Incision was carried down to fascia, which was opened under direct vision. P eritoneum was encountered, opened under direct vision. Vicryl #1 placed inside the fascia. Sharron t rocar was carefully introduced. Pneumoperitoneum was obtained. I placed 3 more trocars, 5 mm each o ne of them in the right upper quadrant area under direct visualization. This allowed me to put a gra sper in the fundus of the gallbladder, another grasper in the infundibulum, retracting the gallbladde r in the inferolateral fashion, exposing the triangle of Calot, and obtaining critical view. Cystic duct and cystic artery were clearly isolated, freed circumferentially, and a connection between thos e and the gallbladder was clearly identified. I proceeded to ligate those by using at least 3 clips proximal, 1 clip distal, ligation in middle. Same was done with the cystic artery. No bile leak, no bleeding. The gallbladder was removed from liver using Bovie cauterizer and removed from abdominal cavity using EndoCatch through the umbilical incision. The area was inspected once again, no bile le ak, no bleeding. Clips were intact. Gallbladder fossa with no bleeding. At that moment, I proceede d to remove the trocars under direct vision. Deflated the pneumoperitoneum. Closed the fascia with #1 Vicryl. Irrigated subcutaneous tissue, closed that with 3-0 chromic and the skin with subcuticula r fashion with 3-0 chromic and Steri-Strips on top. Sponge count, instrument counts correct. Sally pradhan was sent to recovery in stable condition. Disposition: Home. Activity: As tolerated. Instructions: No heavy lifting. Follow up in my office in 1 week. Call for appointment at [phone] . Keep area dry for 48 hours, then may shower. Keep Steri-Strips intact. JOANN/RAYMUNDOL Voice ID: [id number] Report ID: [id number]
--- NOTE | 2022-07-20 20:12 | OP ---
Date of Procedure: 07/19/2022 Surgeon: Jose Welch MD Preoperative Diagnoses: Acute cholecystitis and symptomatic cholelithiasis. Postoperative Diagnoses: Acute cholecystitis and symptomatic cholelithiasis. Procedure: Laparoscopic cholecystectomy. Estimated Blood Loss: Less than 10 cc. Findings: As above. Anesthesia: General plus local. Indications: This is the case of a -scmg-kdn patient who comes to us. DICTATION ENDS HERE JOANN/IRMA Voice ID: [id number] Report ID: [id number]
== END 2022-07-19 11:25 | disposition home or self-care (01) ==
LOC: OR 07:28
PROVIDERS: ATTEND Surgery
PROC: 0FT44ZZ Resection of Gallbladder, Percutaneous Endoscopic Approach (ICD-10-PCS; principal; 2022-07-19 09:15)
DX: K80.10 Calculus of gallbladder with chronic cholecystitis without obstruction (principal); J45.909 Unspecified asthma, uncomplicated; K21.9 Gastro-esophageal reflux disease without esophagitis; F32.A Depression, unspecified; F41.9 Anxiety disorder, unspecified
CPT/HCPCS: 93005; 85025; 80048; 36415; 82150; 81025; 80076; 88304; 83690; 71046; 47562; J2704; J2001; J2250; J3010; J1100; J7120; J0694; J2405

== ENCOUNTER 2023-01-21 10:00 | Emergency (ER) | payer OTHER ==
[2023-01-21] MEDS ORDERED: ONDANSETRON 4 MG/2 ML VIAL ONE (10:27)
[2023-01-21] MEDS ORDERED: KETOROLAC 30 MG/ML INJ ONE (10:27)
[2023-01-21 10:33] LABS: Absolute Lymphocytes (CBC) 1.6 K/uL (0.7-4.9); Hematocrit 38.6 % (36.0-45.0); Lymphocytes % 28.2 % (15.3-44.8); MCV 81.9 fL (80-100); MPV 7.6 fL (7.6-11.3); RBC Red Blood Cell Count 4.72 M/uL (3.86-4.86)
[2023-01-21 10:36] LABS: Specific Gravity 1.021 (1.005-1.030); Urine Bacteria None Seen /HPF (<20); Urine Bilirubin NEGATIVE (Negative); Urine Blood Negative (Negative); Urine Clarity Turbid (Clear); Urine Color Light-Yellow (Yellow); Urine Glucose NEGATIVE (Negative); Urine Protein NEGATIVE (Negative); Urine RBC <5 /HPF (None Seen); Urine Urobilinogen Normal (Normal)
[2023-01-21 10:51] LABS: Albumin 3.8 g/dL (3.4-5.0); Bilirubin Total 0.3 mg/dL (0.2-1.0); Potassium 3.8 mEq/L (3.5-5.1); Protein, Total 7.7 g/dL (6.4-8.2)
--- NOTE | 2023-01-21 11:08 | RAD REPORT ---
EXAM DESCRIPTION: CTAbdomen Pelvis Wo Contrast - 01/21/2023 11:00 am CLINICAL HISTORY: R flank pain COMPARISON: Abdomen Pelvis W Contrast dated 11/20/2018; CTSTONE PROTOCOL dated 03/08/2015 TECHNIQUE: CT of the abdomen and pelvis was performed without contrast. All CT scans are performed using dose optimization technique as appropriate and may include automated exposure control or mA/KV adjustment according to patient size. FINDINGS: Lower chest: No acute abnormality. Liver: No acute abnormality or suspicious lesions. Biliary: Cholecystectomy Stomach: No significant focal abnormality. Duodenum: No significant focal abnormality. Pancreas: No significant abnormality. Spleen: No significant abnormality. Adrenal: No suspicious lesions. Kidney/ureter: No hydronephrosis. No renal calculi. Retroperitoneum: No retroperitoneal adenopathy. Vascular: No aneurysm. Bowel: No significant focal abnormality. Moderate stool in the ascending and transverse colon. Normal appendix. Peritoneum: Mild nonspecific mesenteric edema probably of little clinical significance but mesenteric panniculitis can appear similar. Bladder: Grossly unremarkable. Reproductive: No adnexal masses. Bones: No acute fracture. Other: n/a IMPRESSION: No acute intra-abdominal or pelvic finding. Specifically, no renal or ureteral calculi i dentified. A few incidental findings as noted above.
--- NOTE | 2023-01-21 11:25 | ER ---
Nurse's Notes [facility] Name: Bobby Che Age: 47 yrs Sex: Female : 1975 Arrival Date: 01/21/2023 Time: 10:[address] Private MD: Diagnosis: UTI/ Urinary tract infection, site not specified;Low back pain Presentation: 01/21 10:11 Chief complaint: Patient states: Constant right flank pain X 2 days. Coronavirus ld1 screen: At this time, the client does not indicate any symptoms associated with coronavirus-19. Ebola Screen: No symptoms or risks identified at this time. Initial Sepsis Screen: Does the patient meet any 2 criteria? No. Patient's initial sepsis screen is negative. Does the patient have a suspected source of infection? No. Patient's initial sepsis screen is negative. Risk Assessment: Do you want to hurt yourself or someone else? Patient reports no desire to harm self or others. Onset of symptoms was January 21, 2023. 10:11 Method Of Arrival: Ambulatory ld1 10:11 Acuity: HUMAIRA 3 ld1 Triage Assessment: 10:11 General: Appears in no apparent distress. uncomfortable, Behavior is calm, cooperative, ld1 appropriate for age. Pain: Complains of pain in right low back Pain does not radiate. Pain currently is 8 out of 10 on a pain scale. Quality of pain is described as throbbing. EENT: No signs and/or symptoms were reported regarding the EENT system. Neuro: Level of Consciousness is awake, alert, obeys commands, Oriented to person, place, time, situation. Cardiovascular: Capillary refill < 3 seconds Patient's skin is warm and dry. Respiratory: Airway is patent Respiratory effort is even, unlabored. : Reports. 10:14 GI: Abdomen is round non-distended. Derm: No signs and/or symptoms reported regarding ld1 the dermatologic system. Musculoskeletal: No signs and/or symptoms reported regarding the musculoskeletal system. 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 - Social history:: Smoking status: Patient denies any tobacco usage or history of. Patient/guardian denies using alcohol. Screenin:[address] [facility] ED Fall Risk Assessment (Adult) History of falling in the last 3 months, iw including since admission. Abuse screen: Denies threats or abuse. Denies injuries from another. Nutritional screening: No deficits noted. Tuberculosis screening: No symptoms or risk factors identified. Assessment: 11:39 Reassessment: Patient appears in no apparent distress at this time. Patient and/or iw family updated on plan of care and expected duration. Pain level reassessed. Patient is alert, oriented x 3, equal unlabored respirations, skin warm/dry/pink. Vital Signs: 10:11 Temp 97.9(O); ld1 10:11 BP 172 / 106; Pulse 85; Resp 18; Pulse Ox 95% on R/A; Pain 8/10; ld1 10:11 Pain Scale: Adult ld1 ED Course: 10:02 Patient arrived in ED. im 10:02 Miles Mishra MD is Attending Physician. jr11 10:12 Triage completed. ld1 10:14 Arm band placed on right wrist. ld1 10:15 Barbie Meyers, MONY is Primary Nurse. ld1 10:21 No provider procedures requiring assistance completed. Inserted saline lock: 20 gauge ld1 in right antecubital area, using aseptic technique. 11:02 CT Abd/Pelvis - Without Contrast In Process Unspecified. EDMS 11:39 Patient has correct armband on for positive identification. iw 11:39 IV discontinued, intact, bleeding controlled, No redness/swelling at site. Pressure iw dressing applied. Administered Medications: 10:20 Drug: TORadol - Ketorolac IVP 15 mg Route: IVP; Site: right antecubital; ld1 10:20 Drug: Ondansetron IVP 4 mg Route: IVP; Site: right antecubital; ld1 Medication: 11:39 VIS not applicable for this client. iw Outcome: 11:24 Discharge ordered by . rayray 11:39 Discharged to home ambulatory. iw 11:39 Condition: good 11:39 Discharge instructions given to patient, Instructed on discharge instructions, follow up and referral plans. Demonstrated understanding of instructions, follow-up care, medications, Prescriptions given X 3. 11:39 Patient left the ED. iw Signatures: Dispatcher [employer] EDMS Lili Harley RN RN Barbie Meyers RN RN ld1 Miles Mishra MD MD jr11 Pretty Hui Corrections: (The following items were deleted from the chart) 10:21 10:20 CBC+H.LAB.BRZ drawn and sent. 1 EDMS 10:21 10:21 COMPREHENSIVE METABOLIC PANEL+C.LAB.BRZ drawn and sent. [facility] EDMS 10:21 10:21 LIPASE+C.LAB.BRZ drawn and sent. [facility] EDMS 10:21 10:21 Urinalysis+U.LAB.BRZ drawn and sent. [facility] EDME
--- NOTE | 2023-01-21 11:25 | EDPHYS ---
Physician Documentation [facility] Name: Bobby Che Age: 47 yrs Sex: Female : 1975 Arrival Date: 01/21/2023 Time: 10:[address] Private MD: ED Physician Miles Mishra HPI: 01/21 10:17 This 47 yrs old Female presents to ER via Ambulatory with complaints of Flank Pain. jr11 10:17 Patient is a 47-year-old female with 2-day history of right-sided flank pain, worse jr11 with range of motion. Denies urinary complaints no bowel movement issues, no fever. No shortness of breath. Review of system otherwise negative. Pain is colicky, currently 6-7 out of 10, no recent trauma.. 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 - Social history:: Smoking status: Patient denies any tobacco usage or history of. Patient/guardian denies using alcohol. ROS: 10:17 All other systems are negative. jr11 Exam: 10:17 Constitutional: This is a well developed, well nourished patient who is awake, alert, jr11 and in no acute distress. Head/Face: Normocephalic, atraumatic. Eyes: Extra-ocular motions intact. Lids and lashes normal. Conjunctiva and sclera are non-icteric and not injected. Cornea within normal limits. Periorbital areas with no swelling, redness, or edema. Neck: Trachea midline, no thyromegaly or masses palpated, and no cervical lymphadenopathy. Supple, full range of motion without nuchal rigidity, or vertebral point tenderness. No Meningismus. Chest/axilla: Normal chest wall appearance and motion. Nontender with no deformity. No lesions are appreciated. Cardiovascular: Regular rate and rhythm with a normal S1 and S2. No gallops, murmurs, or rubs. Normal PMI, no JVD. No pulse deficits. Respiratory: Lungs have equal breath sounds bilaterally, clear to auscultation and percussion. No rales, rhonchi or wheezes noted. No increased work of breathing, no retractions or nasal flaring. Back: No spinal tenderness. No costovertebral tenderness. Full range of motion. Skin: Warm, dry with normal turgor. Normal color with no rashes, no lesions, and no evidence of cellulitis. MS/ Extremity: Pulses equal, no cyanosis. Neurovascular intact. Full, normal range of motion. Vital Signs: 10:11 Temp 97.9(O); ld1 10:11 BP 172 / 106; Pulse 85; Resp 18; Pulse Ox 95% on R/A; Pain 8/10; ld1 10:11 Pain Scale: Adult ld1 MDM: 10:17 Differential diagnosis: nephrolithiasis, pyelonephritis, UTI, diverticulitis. Data jr11 reviewed: vital signs, nurses notes. 10:20 Patient medically screened. jr11 11:23 ED course: CT images reviewed by me does not show any free fluid. ED course: Patient jr11 with concern for UTI with positive leuk esterase, given flank pain, will treat with Keflex we will also give anti-inflammatory muscle relaxants in case there is a component of musculoskeletal pain. 01/21 10:17 Order name: CBC with Diff; Complete Time: : [facility] 01/21 10:17 Order name: CMP; Complete Time: : [facility] 01/21 10:17 Order name: Lipase; Complete Time: : [facility] 01/21 10:17 Order name: Urinalysis w/ reflexes; Complete Time: : [facility] 01/21 10:17 Order name: CT Abd/Pelvis - Without Contrast; Complete Time: : [facility] 01/21 10:17 Order name: IV Saline Lock; Complete Time: 10:20 [facility] 01/21 10:17 Order name: Labs collected and sent; Complete Time: 10:20 jr11 Administered Medications: 10:20 Drug: TORadol - Ketorolac IVP 15 mg Route: IVP; Site: right antecubital; ld1 10:20 Drug: Ondansetron IVP 4 mg Route: IVP; Site: right antecubital; ld1 Disposition Summary: 01/21/23 11:24 Discharge Ordered Location: Home jr11 Condition: Stable jr11 Diagnosis - UTI/ Urinary tract infection, site not specified jr11 - Low back pain jr11 Discharge Instructions: - Discharge Summary Sheet jr11 - Acute Back Pain, Adult jr11 - Urinary Tract Infection, Adult jr11 Forms: - Work release form iw - Medication Reconciliation Form jr11 - Thank You Letter jr11 - Antibiotic Education jr11 - Prescription Opioid Use jr11 Prescriptions: - Cephalexin 500 mg Oral Capsule - take 1 capsule by ORAL route 3 times per day for 10 days; 30 capsule; Refills: jr11 0, Product Selection Permitted - Ibuprofen 600 mg Oral Tablet - take 1 tablet by ORAL route every 6 hours As needed take with food; 30 tablet; jr11 Refills: 0, Product Selection Permitted - methocarbamol 750 mg Oral Tablet - take 1 tablet by ORAL route 3 times per day; 30 tablet; Refills: 0, Product jr11 Selection Permitted Signatures: Dispatcher [employer] EDMS Barbie Meyers RN RN ld1 Miles Mishra MD MD jr11 Corrections: (The following items were deleted from the chart) 10:21 10:17 CBC+H.LAB.BRZ ordered. EDMS EDMS 10:21 10:17 COMPREHENSIVE METABOLIC PANEL+C.LAB.BRZ ordered. EDMS EDMS 10:21 10:17 LIPASE+C.LAB.BRZ ordered. EDMS EDMS 10:21 10:17 Urinalysis+U.LAB.BRZ ordered. EDMS EDMS
[2023-01-21 12:04] VITALS: BP 172/106; TEMP 97.9; O2SAT 95
== END 2023-01-21 11:39 | disposition home or self-care (01) ==
LOC: ER 10:00
DX: N39.0 Urinary tract infection, site not specified (principal); F41.9 Anxiety disorder, unspecified
CPT/HCPCS: 85025; 81001; 36415; 83690; 80053; 74176; 96375; 96374; 99284; J2405

== ENCOUNTER 2024-10-29 13:28 | Emergency (ER) | payer OTHER ==
--- OUTSIDE RECORDS SUMMARY | 2024-10-29 13:31 | XMS REPORT | Continuity of Care Document ---
Author Name Unknown Address [address] [place] [address] [facility] Address [address] [place] [address] Care Team Providers Care Table Runner Name Role Phone [email or web address] Attending Clinician Unavaila ble [email or web address] Admitting Clinician Unavaila ble Encounters Start Date/Time End Date/Time Encounter Type Admission Type Attending Clinicians Care Facility Care Department Encounter ID Source 2024-06-13 09:45:07 2024-06-13 09:45:07 Outpatient [id number] 2024-05-17 08:25:29 2024-05-17 08:25:29 Outpatient [facility] [id number] 2024 09:02:31 2024 09:02:31 Outpatient [facility] [id number] 2024-01-11 10:18:42 2024-01-11 10:18:42 Outpatient [facility] [id number] 2023-11-11 09:03:22 2023-11-11 09:03:22 Outpatient [facility] [id number] 2023-09-13 09:47:09 2023-09-13 09:47:09 Outpatient [facility] [id number] [address] 2023-06-08 00:00:00 2023-06-08 00:00:00 Outpatient [email or web address] [email or web address]_[email or web address] [facility] [id number] [facility]
[2024-10-29 14:23] LABS: Absolute Eosinophils 0.1 K/uL (0-0.5); Absolute Lymphocytes (CBC) 2.2 K/uL (0.7-4.9); Absolute Monocytes 0.5 K/uL (0.1-1.3); Absolute Neutrophil 2.8 K/uL (1.8-8.0); Basophils % 0.9 % (0-1.3); Eosinophils % 1.3 % (0-4.4); Hematocrit 39.3 % (36.0-45.0); Hemoglobin 13.6 g/dL (12.0-15.0); Lymphocytes % 39.3 % (15.3-44.8); MCH 30.1 pg (27.0-35.0); MCHC 34.7 g/dL (32.0-36.0); MCV 86.8 fL (80-100); MPV 8.1 fL (7.6-11.3); Monocytes % 8.3 % (3.3-12.3); Neutrophils % 50.2 % (41.7-73.7); Nucleated Red Blood Cells % 0.3 % (0-0); Platelets 243 thou/uL (152-406); RBC Red Blood Cell Count 4.52 M/uL (3.86-4.86); Red Cell Distribution Width 13.4 % (12.1-15.2)
[2024-10-29] MEDS ORDERED: KETOROLAC 30 MG/ML INJ ONE (14:27)
--- NOTE | 2024-10-29 14:35 | RAD REPORT ---
EXAMINATION: ONE VIEW CHEST XR CLINICAL INDICATION: CHEST PAIN TECHNIQUE: Frontal chest projection is submitted. Examination is limited by patient positioning and t echnique. COMPARISON: 07/15/2022 FINDINGS: Interstitial markings are mildly prominent bilaterally. This may be related to interstitial pulmonary edema or bronchitis. The heart is normal in size. No displaced fractures identified.
[2024-10-29 14:47] LABS: Anion Gap 3.9 mEq/L (5.0-15.0); Potassium 3.9 mEq/L (3.5-5.1); Troponin High Sensitivity 3.3 pg/mL (<58.9)
--- NOTE | 2024-10-29 15:09 | ER ---
Nurse's Notes [facility] Name: Bobby Che Age: 49 yrs Sex: Female : 1975 Arrival Date: 10/29/2024 Time: 13:28 Bed 18 Private MD: Diagnosis: Chest pain, unspecified Presentation: 10/29 13:38 Chief complaint: Patient states: mid-sternal chest pain radiating to right side of aa5 chest and right axillae. Pt reports being seen at [facility] recently. Coronavirus screen: At this time, the client does not indicate any symptoms associated with coronavirus-19. Ebola Screen: Patient denies travel to an Ebola-affected area in the 21 days before illness onset. Initial Sepsis Screen: Does the patient meet any 2 criteria? No. Patient's initial sepsis screen is negative. Does the patient have a suspected source of infection? No. Patient's initial sepsis screen is negative. Risk Assessment: Do you want to hurt yourself or someone else? Patient reports no desire to harm self or others. Onset of symptoms was October 2024. 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 - Infectious Disease History:: Denies. - Social history:: Smoking status: Patient denies any tobacco usage or history of. Screenin:50 [facility] ED Fall Risk Assessment (Adult) History of falling in the last 3 months, kj2 including since admission No falls in past 3 months (0 pts) Confusion or Disorientation No (0 pts) Intoxicated or Sedated No (0 pts) Impaired Gait No (0 pts) Mobility Assist Device Used No (0 pt) Altered Elimination No (0 pt) Score/Fall Risk Level 0 - 2 = Low Risk Maintained a safe environment, Hourly rounding (assess needs \T\ fall precautionary measures) done. Abuse screen: Denies threats or abuse. Denies injuries from another. Nutritional screening: No deficits noted. Tuberculosis screening: No symptoms or risk factors identified. Assessment: 13:50 General: Appears in no apparent distress. Behavior is calm, cooperative. Pain: kj2 Complains of pain in chest Pain radiates to radiates to right chest Pain began 2 weeks ago. Neuro: Level of Consciousness is awake, alert, obeys commands, Oriented to person, place, time, situation. Cardiovascular: Patient's skin is warm and dry. Respiratory: Airway is patent Respiratory effort is unlabored. GI: No signs and/or symptoms were reported involving the gastrointestinal system. : No signs and/or symptoms were reported regarding the genitourinary system. 14:50 Reassessment: Patient appears in no apparent distress at this time. Patient and/or kj2 family updated on plan of care and expected duration. Pain level reassessed. Patient is alert, oriented x 3, equal unlabored respirations, skin warm/dry/pink. 15:19 Reassessment: Patient appears in no apparent distress at this time. Patient and/or kj2 family updated on plan of care and expected duration. Pain level reassessed. Patient is alert, oriented x 3, equal unlabored respirations, skin warm/dry/pink. Vital Signs: 13:38 BP 138 / 91; Pulse 81; Resp 16 S; Temp 97.6(TE); Pulse Ox 99% on R/A; Weight 72.57 kg aa5 (R); Height 5 ft. 5 in. (R); 15:20 BP 128 / 86; Pulse 89; Resp 20; Temp 97.9; Pulse Ox 100% on R/A; kj2 13:38 Body Mass Index 26.63 (72.57 kg, 165.1 cm) aa5 ED Course: 13:34 Patient arrived in ED. cj3 13:35 Edy Maya MD is Attending Physician. ec2 13:38 Arm band placed on. aa5 13:39 Triage completed. aa5 13:50 Patient has correct armband on for positive identification. Adult w/ patient. Provided kj2 Education on: call light. Client placed on continuous cardiac and pulse oximetry monitoring. NIBP monitoring applied. gambling monitor on. 13:50 Inserted saline lock: 20 gauge in left antecubital area, using aseptic technique. Blood kj2 collected. Flushed with 10 mL NS. Patient maintains SpO2 saturation greater than 95% on room air. 14:02 Demetrice Childress, RN is Primary Nurse. kj2 14:24 XRAY Chest (1 view) In Process Unspecified. EDMS 14:35 No provider procedures requiring assistance completed. kj2 15:09 Werner Banegas MD is Referral Physician. ec2 15:22 IV discontinued, intact, bleeding controlled, No redness/swelling at site. Pressure kj2 dressing applied. Administered Medications: 14:29 Drug: Ketorolac IVP 15 mg IVP once Route: IVP; Site: left antecubital; kj2 15:37 Follow up: Response: No adverse reaction kj2 Medication: 13:50 VIS not applicable for this client. kj2 Outcome: 15:09 Discharge ordered by . ec2 15:20 Discharged to home ambulatory, kj2 15:20 Condition: stable 15:20 Discharge instructions given to patient, Instructed on discharge instructions, follow up and referral plans. Demonstrated understanding of instructions, follow-up care, 15:37 Patient left the ED. kj2 Signatures: Dispatcher [employer] Yuli Son, RN RN aa5 Edy Maya MD MD ec2 Demetrice Childress, MONY RN kj2 Berenice Pendleton cj3
--- NOTE | 2024-10-29 15:09 | EDPHYS ---
Physician Documentation [facility] Name: Bobby Che Age: 49 yrs Sex: Female : 1975 Arrival Date: 10/29/2024 Time: 13:28 Bed 18 Private MD: ED Physician dEy Maya HPI: 10/29 13:57 This 49 yrs old Female presents to ER via Ambulatory with complaints of Chest ec2 Pain, Chest Tightness. 13:57 Patient arrives today for evaluation of right-sided chest pain ongoing for several ec2 weeks, reports that she has been seen before and was told that she has pleurisy. Patient reports no falls injuries or trauma. Denies any difficulty breathing. Reports history of asthma otherwise no chronic medical problems does not take any medications daily. Patient reports no cardiac history.. 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 - Infectious Disease History:: Denies. - Social history:: Smoking status: Patient denies any tobacco usage or history of. ROS: 13:58 Constitutional: as per hpi ec2 Exam: 13:58 Constitutional: GEN: NAD Head: atraumatic Eyes: EOMI Ears: External ears are ec2 normal. CV: regular rate LUNGS: no respiratory distress, no wheezes or rales or rhonchi ABD: non-distended SKIN: no evidence of rashes MSK: no evidence of trauma Vital Signs: 13:38 BP 138 / 91; Pulse 81; Resp 16 S; Temp 97.6(TE); Pulse Ox 99% on R/A; Weight 72.57 kg aa5 (R); Height 5 ft. 5 in. (R); 15:20 BP 128 / 86; Pulse 89; Resp 20; Temp 97.9; Pulse Ox 100% on R/A; kj2 13:38 Body Mass Index 26.63 (72.57 kg, 165.1 cm) aa5 MDM: 13:45 Medical Screening Exam initiated ec2 13:58 Data reviewed: vital signs, nurses notes. ED course: Patient arrives today with ec2 right-sided chest pain. EKG independently reviewed and interpreted by me, shows normal sinus rhythm, rate 78, no acute ST segment elevations, intervals are nonactionable. Will obtain lab work and chest x-ray. DDx includes ACS, doubt PE, doubt dissection, possible pleurisy, possible costochondritis.. 15:08 ED course: Lab work and x-ray are nonactionable. I suspect possible costochondritis ec2 versus pleurisy, patient does report improvement in symptoms after the Toradol. I instructed on [id number] medications. Return precautions given. Instructed to follow-up with cardiology as well.. 10/29 13:46 Order name: Basic Metabolic Panel; Complete Time: 14:51 ec2 10/29 13:46 Order name: CBC with Diff; Complete Time: 14:36 ec2 10/29 13:46 Order name: Troponin HS; Complete Time: 14:51 ec2 10/29 13:46 Order name: XRAY Chest (1 view); Complete Time: 14:36 ec2 10/29 13:46 Order name: EKG; Complete Time: 13:46 ec2 10/29 13:46 Order name: Cardiac monitoring; Complete Time: 14:17 ec2 10/29 13:46 Order name: EKG - Nurse/Tech; Complete Time: 14:02 ec2 10/29 13:46 Order name: IV Saline Lock; Complete Time: 14:17 ec2 10/29 13:46 Order name: Labs collected and sent; Complete Time: 14:17 ec2 10/29 13:46 Order name: O2 Per Protocol; Complete Time: 14:17 ec2 10/29 13:46 Order name: O2 Sat Monitoring; Complete Time: 14:17 ec2 Administered Medications: 14:29 Drug: Ketorolac IVP 15 mg IVP once Route: IVP; Site: left antecubital; kj2 15:37 Follow up: Response: No adverse reaction kj2 Disposition Summary: 10/29/24 15:09 Discharge Ordered Notes: Location: Home ec2 Condition: Stable ec2 Diagnosis - Chest pain, unspecified ec2 Followup: ec2 - With: Werner Banegas MD - When: - Reason: Recheck today's complaints Discharge Instructions: - Discharge Summary Sheet ec2 - Nonspecific Chest Pain, Adult, [id number] ec2 Forms: - Medication Reconciliation Form ec2 - Antibiotic Education ec2 - Prescription Opioid Use ec2 - Patient Portal Instructions ec2 - Leadership Thank You Letter ec2 Signatures: Dispatcher [employer] Yuli Son, RN RN aa5 Edy Maya MD MD ec2 Demetrice Childress RN RN kj2
[2024-10-29 15:43] VITALS: BP 128/86; TEMP 97.9; O2SAT 100
== END 2024-10-29 15:37 | disposition home or self-care (01) ==
LOC: ER 13:28
DX: R07.89 Other chest pain (principal)
CPT/HCPCS: 36415; 71045; 80048; 84484; 85025; 93005; 96374; 99285